=== PATIENT | male | born 2000 | race Caucasian/White ===

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

== ENCOUNTER 2022-03-02 17:42 | Emergency (ER) | payer SELFPAY ==
[2022-03-02] MEDS ORDERED: Ketorolac 30 MG/ML SDV IM ONE (18:34)
[2022-03-02 19:23] LABS: STREP A BY PCR NOT DETECTED (NOT DETECT)
[2022-03-02 19:37] LABS: CORONAVIRUS COVID-19 NAA NEGATIVE (NEGATIVE)
== END 2022-03-02 20:30 | disposition home or self-care (01) ==
LOC: JD.ED 17:42
DX: S56.911A Strain of unspecified muscles, fascia and tendons at forearm level, right arm, initial encounter (principal); S56.912A Strain of unspecified muscles, fascia and tendons at forearm level, left arm, initial encounter; J02.9 Acute pharyngitis, unspecified; Z20.822 Contact with and (suspected) exposure to COVID-19; X58.XXXA Exposure to other specified factors, initial encounter
CPT/HCPCS: 0240U; 87651; 96372; 99283; J1885; 99282

== ENCOUNTER 2022-10-02 08:13 | Emergency (ER) | payer SELFPAY | END 2022-10-02 10:30 | disposition home or self-care (01) | LOC: JD.ED 08:13 | DX: S91.312A Laceration without foreign body, left foot, initial encounter (principal); W22.8XXA Striking against or struck by other objects, initial encounter | CPT/HCPCS: 73630-26-LT; 73630-LT; 99282; 99283 ==

== ENCOUNTER 2022-11-21 00:32 | Emergency (ER) | payer SELFPAY ==
[2022-11-21] MEDS ORDERED: LORazepam 0.5 MG Tab PO ONE (01:06)
== END 2022-11-21 02:04 | disposition home or self-care (01) ==
LOC: JD.ED 00:32
DX: R45.4 Irritability and anger (principal); S60.512A Abrasion of left hand, initial encounter; S60.511A Abrasion of right hand, initial encounter; S90.812A Abrasion, left foot, initial encounter; Z72.0 Tobacco use; Z86.16 Personal history of COVID-19; W22.8XXA Striking against or struck by other objects, initial encounter; Y92.009 Unspecified place in unspecified non-institutional (private) residence as the place of occurrence of the external cause
CPT/HCPCS: 99284; A9270; 99283